=== PATIENT | male | born 1975 | race Caucasian/White ===

== ENCOUNTER → 2019-06-02 09:30 | Outpatient (BNVA) | payer MEDICARE, MEDICAID, SELFPAY | PROVIDERS: Visit Provider Registered Nurse | DX: Z79.899 Other long term (current) drug therapy (principal) | CPT/HCPCS: 80061; 83036 ==

== ENCOUNTER → 2020-11-29 11:13 | Outpatient (BNVA) | payer MEDICARE, MEDICAID, SELFPAY | PROVIDERS: Visit Provider Registered Nurse | DX: Z79.899 Other long term (current) drug therapy (principal) | CPT/HCPCS: 36415; 80053; 80061; 83036; 83721 ==

== ENCOUNTER → 2021-12-12 14:20 | Outpatient (BNVA) | payer MEDICARE, MEDICAID, SELFPAY | PROVIDERS: Visit Provider Registered Nurse | DX: Z79.899 Other long term (current) drug therapy (principal) | CPT/HCPCS: 80053; 80061; 83036; 84443; 85025 ==

== ENCOUNTER → 2022-11-20 13:27 | Outpatient (BNVA) | payer MEDICARE, MEDICAID, OTHER, SELFPAY | PROVIDERS: PCP Family Medicine; Visit Provider Registered Nurse | DX: F17.218 Nicotine dependence, cigarettes, with other nicotine-induced disorders (principal); Z79.899 Other long term (current) drug therapy; F32.0 Major depressive disorder, single episode, mild | CPT/HCPCS: 80053; 80061; 82306; 82607; 83036; 84443; 85025 ==

== ENCOUNTER → 2023-06-27 10:24 | Outpatient (BNVA) | payer SELFPAY | PROVIDERS: PCP Nurse Practitioner Family; Visit Provider Nurse Practitioner Family | DX: Z79.899 Other long term (current) drug therapy (principal); Z13.6 Encounter for screening for cardiovascular disorders; E55.9 Vitamin D deficiency, unspecified | CPT/HCPCS: 80053; 80061; 81003; 82306; 83036; 84443; 85025 ==

== ENCOUNTER → 2024-06-14 10:07 | Outpatient (BNVA) | payer MEDICARE, MEDICAID, OTHER, SELFPAY | PROVIDERS: PCP Nurse Practitioner Family; Visit Provider Nurse Practitioner Family | DX: E55.9 Vitamin D deficiency, unspecified (principal); Z13.6 Encounter for screening for cardiovascular disorders; Z79.899 Other long term (current) drug therapy | CPT/HCPCS: 80053; 80061; 82306; 83036; 84443; 85025 ==

== ENCOUNTER → 2024-12-24 08:07 | Outpatient (BNVA) | payer MEDICARE, MEDICAID, SELFPAY | PROVIDERS: Family Provider Nurse Practitioner Family; PCP Nurse Practitioner Family; Visit Provider Student in an Organized Health Care Education/Training Program | DX: Z12.11 Encounter for screening for malignant neoplasm of colon (principal) | CPT/HCPCS: 99024; 99204 ==

== ENCOUNTER 2025-01-18 09:25 | Day surgery (SDC) | payer MEDICARE, MEDICAID, SELFPAY ==
[2025-01-18 09:43] VITALS: BMI 24.6
[2025-01-18 09:46] VITALS: BP 127/75; PULSE 69; RESP 18; TEMP 36.4; O2SAT 100
--- NOTE | 2025-01-18 10:32 | W.PM.OPSUD ---
Surgery/Procedure H&P Update DATE OF PROCEDURE: January 18, 2025 DATE H&P PERFORMED: 12/24/24 H&P UPDATE INFORMATION: I have reviewed H&P completed within last 30 days, I have examined patient prior to procedure, No changes to prior documentation and Risks and benefits of the procedure reviewed PLANNED PROCEDURE: Operation Date: 01/18/25 11:00 Proposed Procedures p Colonoscopy [id number] Z12.11(Not Applicable) - Will Herrera MD
--- NOTE | 2025-01-18 10:37 | ANES.PREANE2 ---
Pre-Anesthetic Assessment Height/Weight: Height 1.75 m Weight 75.75 kg Temp Pulse Resp BP Pulse Ox O2 Del Method 97.6 F 69 18 127/75 100 Room Air 01/18/25 09:46 01/18/25 09:46 01/18/25 09:46 01/18/25 09:46 01/18/25 09:46 01/18/25 09:46 Preop Diagnosis: screening Operation Date: 01/18/25 11:00 Proposed Procedures p Colonoscopy [id number] [id number] Z12.11(Not Applicable) - Will Herrera MD Familial anesthetic complications: none Was Beta Misael taken within 24 hours: N/A Was Clonidine taken within 24 hours: N/A Last intake: Intake Last Liquid Date 01/17/25 Last Liquid Time 21:00 Last Solid Date 01/16/25 Last Solid Time 18:00 Social Tobacco and No alcohol 6 cigarettes per day pack(s) per day Exam alert, oriented x 3, clear to auscultation bilaterally and regular rate & rhythm Airway Submandibular: within normal limits Cervical ROM: within normal limits Mallampati: Class II Dentition: chipped History/ROS No significant history except as noted and No significant complaints Pulmonary None reported CV/HEM None reported None reported Hepatic None reported GI None reported Metabolic None reported Musc/skel None reported Neuropsych Anxiety and Depression Major Depressive Disorder Anesthetic Plan ASA status: 3 Anesthesia: MAC Risk of > 500 ml blood loss (7ml/kg in children): No Medications/Allergies Home Medications ?Medication ?Instructions ?Recorded ?Confirmed ?Last Taken ?Type multivitamin 1 tab PO DAILY 05/06/19 01/14/25 01/17/25 History citalopram 40 mg tablet 40 mg PO .morning #30 tabs 11/12/24 01/14/25 01/17/25 Rx sennosides 8.6 mg-docusate sodium 1 tab-cap PO DAILY PRN 12/17/24 01/14/25 01/17/25 Rx 50 mg tablet (Senna with Docusate constipation 30 days #30 tabs Sodium) magnesium citrate 296 ml PO BID 1 day #592 mL 12/24/24 01/14/25 01/17/25 Rx aripiprazole 5 mg tablet (Abilify) 5 mg PO BEDTIME 01/14/25 01/14/25 01/17/25 History cetirizine 10 mg tablet 10 mg PO DAILY 01/14/25 01/14/25 01/17/25 History fluticasone propionate 50 10 mcg intranasal DAILY PRN 01/14/25 01/14/25 01/17/25 History mcg/actuation nasal Allergy Symptoms spray,suspension Allergies Allergy/AdvReac Type Severity Reaction Status Date / Time No Known Allergies Allergy Verified 12/24/24 08:08 Current Medications Generic Name Dose Route Start Last Admin Trade Name Freq PRN Reason Stop Dose Admin Sodium Chloride 1,000 mls @ 15 mls/hr 01/18/25 09:38 01/18/25 09:49 Sodium Chloride 0.9% IV 01/19/25 09:37 15 mls/hr .Q24H PRN Administration COLONOSCOPY FLUIDS PFSH Anesthesia Medical History Constipation Colon cancer screening Nicotine dependence, chewing tobacco, uncomplicated Encounter for medication review Environmental and seasonal allergies Nicotine dependence, cigarettes, uncomplicated Moderate intellectual disabilities Vitamin D deficiency Encounter for screening for cardiovascular disorders Medication management Psychiatric care Intermittent explosive disorder Social History Smoking and tobacco/nicotine status: current every day tobacco/nicotine user cigarettes
[2025-01-18 11:01] VITALS: BP 84/54; PULSE 75; RESP 18; TEMP 36.4; O2SAT 94
[2025-01-18 11:30] VITALS: BP 112/68; PULSE 71; RESP 18; O2SAT 99
--- NOTE | 2025-01-18 11:38 | ANE.PACU2 ---
Inpatient post-anesthesia follow up: Airway intact: Yes Vital signs: Temperature 97.6 F Pulse Rate 71 Respiratory Rate 18 Blood Pressure 112/68 Pulse Oximetry 99 Oxygen Delivery Me thod Room Air Oxygen Flow Rate Fraction of Inspir ed Oxygen Hydration adequate: Yes Nausea and vomiting: No Pain level: 1 Mental status: Baseline
== END 2025-01-18 11:38 | disposition home or self-care (01) ==
PROVIDERS: PCP Nurse Practitioner Family; Visit Provider Student in an Organized Health Care Education/Training Program
PROC: 0DJD8ZZ Inspection of Lower Intestinal Tract, Via Natural or Artificial Opening Endoscopic (ICD-10-PCS; CPT 45378; principal; 2025-01-18 11:00)
DX: Z12.11 Encounter for screening for malignant neoplasm of colon (principal); D12.5 Benign neoplasm of sigmoid colon; K59.00 Constipation, unspecified; F17.210 Nicotine dependence, cigarettes, uncomplicated; F41.8 Other specified anxiety disorders; F32.9 Major depressive disorder, single episode, unspecified
CPT/HCPCS: 45385; 88305; J2704; J7030; J9999

== ENCOUNTER → 2025-01-31 10:29 | Outpatient (BNVA) | payer MEDICARE, MEDICAID, SELFPAY | PROVIDERS: PCP Nurse Practitioner Family; Visit Provider Student in an Organized Health Care Education/Training Program | DX: Z09 Encounter for follow-up examination after completed treatment for conditions other than malignant neoplasm (principal) | CPT/HCPCS: 99213 ==

== ENCOUNTER → 2025-03-16 11:06 | Outpatient (BNVA) | payer MEDICARE, MEDICAID, SELFPAY | PROVIDERS: PCP Nurse Practitioner Family; Visit Provider Nurse Practitioner Family | DX: Z13.6 Encounter for screening for cardiovascular disorders (principal); Z12.5 Encounter for screening for malignant neoplasm of prostate; Z79.899 Other long term (current) drug therapy; E55.9 Vitamin D deficiency, unspecified | CPT/HCPCS: 80053; 80061; 81003; 82306; 83036; 85025; G0103 ==